=== PATIENT | female | born 1965 | race African-American/Black ===

== ENCOUNTER 2024-10-01 14:18 | Emergency (ER) | payer MEDICARE, MEDICAID ==
[~2024-10-01] VITALS: Ht 177.8 cm; Wt 120.0 kg
[2024-10-01 14:19] VITALS: O2SAT 95
[2024-10-01] MEDS: HYDROCODONE/ACETAMINOPHEN 10/325MG TABLET PO ONE (18:06)
[2024-10-01] MEDS ORDERED: HYDR-4001 MT ×2 (19:44→19:46)
[2024-10-01 20:35] VITALS: BP 107/72; PULSE 77; RESP 16; TEMP 36.5; O2SAT 95
== END 2024-10-01 21:29 | disposition home or self-care (01) ==
LOC: ER 14:39
DX: G89.29 Other chronic pain (principal); M54.50 Low back pain, unspecified; I10 Essential (primary) hypertension; J44.9 Chronic obstructive pulmonary disease, unspecified; Z88.5 Allergy status to narcotic agent; Z99.2 Dependence on renal dialysis; Z79.899 Other long term (current) drug therapy
CPT/HCPCS: 72070; 72100; 99284